=== PATIENT | female | born 1980 | race Caucasian/White ===

== ENCOUNTER 2017-11-05 14:01 | Emergency (ER) | payer MEDICAID, OTHER ==
[2017-11-05 14:01] VITALS: BMI 36.3
[2017-11-05 14:45] VITALS: TEMP 98.4; O2SAT 99
--- NOTE | 2017-11-05 15:18 | C.PDOC ---
History Of Present Illness 36 yo female w/PMHx of SLE ( not on medication), chronic lower back pain, come in for evaluation of tender " lump" noted over lower back today AM. Pt also reports, worsening of chronic lower back pain for past 2 weeks. Patient admits, similar lower back pain in past, localized, non-radiating and worse with movement. Otherwise, pt denies known recent trauma or injury, fever, chills, CP , SOB, dyspnea, diaphoresis, palpitation, abd. pain, N/V, UTI sx, saddle anesthesia, incontinence, denies weakness, sensory or vascular deficits to B/.L lEs. Ambulate to ED for evaluation, not in any apparent distress. Time Seen by Provider: 11/05/17 14:59 Chief Complaint (Nursing): Back Pain History Per: Patient Onset/Duration Of Symptoms: Gradual Past Medical History Reviewed: Historical Data, Nursing Documentation, Vital Signs Vital Signs: Last Vital Signs Temp 98.4 F 11/05/17 14:42 Pulse 70 11/05/17 15:58 Resp 16 11/05/17 15:58 BP 104/72 11/05/17 15:58 Pulse Ox 99 11/05/17 15:43 - Medical History PMH: Asthma, Cardia Arrhythmia (tachycardia as per patient), Hyperlipidemia, Hypothyroidism Surgical History: No Surg Hx Family History: States: Unknown Family Hx - Social History Hx Tobacco Use: No Hx Alcohol Use: Yes Hx Substance Use: No - Immunization History Hx Tetanus Toxoid Vaccination: Yes (2013) Hx Influenza Vaccination: No Hx Pneumococcal Vaccination: Yes Review Of Systems Except As Marked, All Systems Reviewed And Found Negative. Constitutional: Negative for: Fever, Chills ENT: Negative for: Throat Pain Cardiovascular: Negative for: Chest Pain Respiratory: Negative for: Cough, Shortness of Breath, Hemoptysis Gastrointestinal: Negative for: Nausea, Vomiting, Abdominal Pain, Diarrhea Genitourinary: Negative for: Dysuria, Frequency, Incontinence Musculoskeletal: Positive for: Back Pain Skin: Negative for: Lesions Neurological: Negative for: Weakness, Numbness Physical Exam - Physical Exam Appears: Well, Non-toxic, No Acute Distress Skin: Normal Color, Warm, Other (small tender mass 0.5 cm noted over coccyx area , deep. No skin changes, no erythema, no flactulance.) Head: Normacephalic Eye(s): bilateral: PERRL Throat: No Erythema, No Exudate, No Drooling Neck: Supple Gastrointestinal/Abdominal: Soft, No Tenderness, No Distention, No Guarding Back: No CVA Tenderness, No Vertebral Tenderness, Paraspinal Tenderness (mild B/ L lumbar. No midline tenderness, no skin changes.) Extremity: Normal ROM, No Pedal Edema, No Deformity Neurological/Psych: Oriented x3, Normal Speech, Normal Motor, Normal Sensation, Normal Reflexes ED Course And Treatment O2 Sat by Pulse Oximetry: 99 Pulse Ox Interpretation: Normal Progress Note: On re-evaluation, pt is afebrile, hemodynamicaly stable. Non- toxic. Ambulatory in ED with stable gait. ENT: no acute findings. uvula midline , no edema. neck: Supple, (-) meningeal sign. CVS: (+)S1S2, reg. Abd: benign. Neuorlogicaly intact. Skin: exam c/w early pilonidal cyst, no cellulitis, no flactulance. UA results review - normal study. Pt advised. ref. to F/u with PMD, SUrgery in 2-3 days for re-eavl. return to ED if any worsening or new changes. Disposition Counseled Patient/Family Regarding: Diagnosis, Need For Followup, Rx Given - Disposition Referrals: Jayant Mcmanus MD [Medical Doctor] - [facility] [Outside] Sumi Pickard MD [Staff Provider] - Disposition: HOME/ ROUTINE Disposition Time: 15:18 Condition: STABLE Additional Instructions: LIGHT DUTY TO LOWER BACK, AVOID HEAVY LIFTING, BENDING, ETC TAKE PAIN MEDICATION PRESCRIBED WARM SALTY WATER SITZ BATHS DAILY TAKE ANTIBIOTIC PRESCRIBED FOLLOW UP WITH PMD, SURGERY IN 2-3 DAYS FOR RE-EVALUATION. RETURN TO ED IF ANY WORSENING OR NEW CHANGES. Prescriptions: Doxycycline Monohydrate [Mondoxyne Nl] 100 mg PO BID #14 capsule Methocarbamol [Robaxin] 500 mg PO TID #14 tab traMADol [Ultram] 50 mg PO TID #7 tab Instructions: Chronic Back Pain (ED), Cyst (ED) Forms: [employer] (Divehi) - Clinical Impression Clinical Impression: Low back pain, Pilonidal cyst
[2017-11-05 15:59] VITALS: BP 104/72; PULSE 70; RESP 16
[2017-11-05 18:02] LABS: RBC URINE 3 /hpf (0-3); URINE BACTERIA OCC (<OCC); URINE BILIRUBIN NEGATIVE (NEGATIVE); URINE BLOOD 1+ (NEGATIVE); URINE CALCIUM OXALATE CRYSTALS OCC /hpf (<OCC); URINE COLOR Yellow (YELLOW); URINE GLUCOSE (UA) NORMAL (Normal); URINE KETONE NEGATIVE (NEGATIVE); URINE LEUKOCYTE ESTERASE NEG Leu/uL (Negative); URINE PROTEIN NEGATIVE (NEGATIVE); URINE UROBILINOGEN NORMAL mg/dL (0.2-1.0); WBC URINE 5 /hpf (0-5)
== END 2017-11-05 15:58 | disposition home or self-care (01) ==
LOC: C.ER 14:01
DX: L05.91 Pilonidal cyst without abscess (principal); M54.5 Low back pain

== ENCOUNTER 2018-01-31 23:40 | Emergency (ER) | payer MEDICAID ==
[2018-01-31 23:43] VITALS: BMI 36.3
[2018-02-01 00:07] VITALS: TEMP 98
--- NOTE | 2018-02-01 00:45 | C.PDOC ---
History Of Present Illness Patient with past medical history of HLD and hypothyroidism, presents to the ED complaining of left hematoma on a/c s/p having blood work done since 5 days ago. Patient denies any other complaints. Time Seen by Provider: 02/01/18 00:26 Chief Complaint (Nursing): Abnormal Skin Integrity History Per: Patient History/Exam Limitations: no limitations Onset/Duration Of Symptoms: Days Current Symptoms Are (Timing): Still Present Location Of Injury: Left: Arm Severity: Mild Pain Scale Rating Of: 2 Recent travel outside of the [place]: No Additional History Per: Family Past Medical History Reviewed: Historical Data, Nursing Documentation, Vital Signs Vital Signs: Last Vital Signs Temp 98.0 F 02/01/18 00:02 Pulse 107 H 02/01/18 00:02 Resp 18 02/01/18 00:02 BP 137/91 H 02/01/18 00:02 Pulse Ox - Medical History PMH: Asthma, Cardia Arrhythmia (tachycardia as per patient), Hyperlipidemia, Hypothyroidism Denies: Chronic Kidney Disease Family History: States: Unknown Family Hx - Social History Hx Tobacco Use: No Hx Alcohol Use: No Hx Substance Use: No - Immunization History Hx Tetanus Toxoid Vaccination: Yes (2013) Hx Influenza Vaccination: Yes Hx Pneumococcal Vaccination: Yes Review Of Systems Constitutional: Negative for: Fever, Chills Skin: Positive for: Other (hematoma on left arm) Psych: Negative for: Anxiety Physical Exam - Physical Exam Appears: Non-toxic, No Acute Distress Skin: Warm, Dry Cardiovascular: Rhythm Regular, No Murmur Extremity: Normal ROM (all fingers), Tenderness (3x4 hematoma with mild tenderness) Extremity: Left: Other (NROM wrist), Bilateral: Normal ROM (all fingers) Pulses: Left Brachial: Normal, Left Radial: Normal Neurological/Psych: Oriented x3, Normal Speech, Normal Motor Gait: Steady ED Course And Treatment O2 Sat by Pulse Oximetry: 98 Pulse Ox Interpretation: Normal Disposition Counseled Patient/Family Regarding: Studies Performed, Diagnosis, Need For Followup - Disposition Referrals: Colin Cristobal PA [Advanced Practice Nurse] - Disposition: HOME/ ROUTINE Disposition Time: 00:44 Condition: FAIR Additional Instructions: Please continue to monitor for swelling, redness and increased pain. Do return if these occur Instructions: Contusion (DC) Forms: [employer] (Croatian) - Clinical Impression Clinical Impression: Hematoma - Scribe Statement Scribe Attestation: Cristy English MD Scribe Attestation: All medical record entries made by the Scribe were at my direction and personally dictated by me. I have reviewed the chart and agree that the record accurately reflects my personal performance of the history, physical exam, medical decision making, and the department course for this patient. I have also personally directed, reviewed, and agree with the discharge instructions and disposition.
[2018-02-01 00:56] VITALS: BP 130/80; PULSE 70; RESP 14; O2SAT 99
== END 2018-02-01 00:55 | disposition home or self-care (01) ==
LOC: C.ER 23:40
DX: S40.022A Contusion of left upper arm, initial encounter (principal); Y84.8 Other medical procedures as the cause of abnormal reaction of the patient, or of later complication, without mention of misadventure at the time of the procedure; Y92.89 Other specified places as the place of occurrence of the external cause

== ENCOUNTER 2018-03-10 10:04 | Emergency (ER) | payer OTHER ==
[2018-03-10 10:08] VITALS: BMI 33.3
[2018-03-10 10:13] VITALS: RESP 18
[2018-03-10] MEDS ORDERED: Tramadol 25 mg PO STA (10:41)
[2018-03-10] MEDS ORDERED: Tramadol 25 mg ONE (10:57)
[2018-03-10 11:20] VITALS: BP 122/84; PULSE 94; TEMP 98.4; O2SAT 100
--- NOTE | 2018-03-10 12:11 | C.PDOC ---
History Of Present Illness 37 y/o female with history of RA presents to ED with complaints of back pain secondary to rheumatoid arthritis. Patient states she is due for Metrotrexate injection but doctor is on vacation and was scheduled for injection in 2 days. Patient denies trauma or any other complaints at this time. Chief Complaint (Nursing): Back Pain History Per: Patient History/Exam Limitations: no limitations Onset/Duration Of Symptoms: Days Current Symptoms Are (Timing): Still Present Quality Of Discomfort: "Pain" Past Medical History Reviewed: Historical Data, Nursing Documentation, Vital Signs Vital Signs: Last Vital Signs Temp 98.4 F 03/10/18 11:18 Pulse 94 H 03/10/18 11:18 Resp 18 03/10/18 11:18 BP 122/84 03/10/18 11:18 Pulse Ox 100 03/10/18 12:14 - Medical History PMH: Asthma, Cardia Arrhythmia (tachycardia as per patient), Hyperlipidemia, Hypothyroidism Surgical History: No Surg Hx Family History: States: No Known Family Hx - Social History Hx Tobacco Use: No Hx Alcohol Use: No Hx Substance Use: No - Immunization History Hx Tetanus Toxoid Vaccination: Yes (2013) Hx Influenza Vaccination: Yes Hx Pneumococcal Vaccination: Yes Review Of Systems Constitutional: Negative for: Fever, Chills Gastrointestinal: Negative for: Nausea, Vomiting Genitourinary: Negative for: Dysuria, Hematuria Musculoskeletal: Positive for: Back Pain. Negative for: Neck Pain Skin: Negative for: Rash Physical Exam - Physical Exam Appears: Non-toxic, No Acute Distress Skin: Warm, Dry, No Rash Head: Atraumatic, Normacephalic Oral Mucosa: Moist Neck: Normal ROM, Supple Cardiovascular: Rhythm Regular Respiratory: Normal Breath Sounds, No Rales, No Rhonchi, No Wheezing Gastrointestinal/Abdominal: Soft, No Tenderness, No Guarding, No Rebound Back: No CVA Tenderness, No Paraspinal Tenderness Extremity: Normal ROM, Capillary Refill (<2 seconds) Neurological/Psych: Oriented x3, Normal Motor, Normal Sensation ED Course And Treatment O2 Sat by Pulse Oximetry: 100 (RA) Pulse Ox Interpretation: Normal Disposition - [facility] - Disposition: HOME/ ROUTINE Disposition Time: 10:30 Condition: GOOD Additional Instructions: Thank you for letting us take care of you today. The emergency medical care you received today was directed at your acute symptoms. If you were prescribed any medication, please fill it and take as directed. It may take several days for your symptoms to resolve. Return to the Emergency Department if your symptoms worsen, do not improve, or if you have any other problems. Please contact your doctor or call one of the physicians/clinics you have been referred to that are listed on the Patient Visit Information form that is included in your discharge packet. Bring any paperwork you were given at discharge with you along with any medications you are taking to your follow up visit. Our treatment cannot replace ongoing medical care by a primary care provider (PCP) outside of the emergency department. Thank you for allowing the [facility] team to be part of your care today. Follow up with your primary care doctor in 2-3 days for re-evaluation and further management. Prescriptions: traMADol [Ultram] 25 mg PO Q8 PRN #15 tab PRN Reason: Pain, Severe (8-10) Instructions: Rheumatoid Arthritis (DC) Forms: [employer] (Macanese) - Clinical Impression Clinical Impression: Rheumatoid arthritis - Scribe Statement The provider has reviewed the documentation as recorded by the Noamibhyacinth Escamilla All medical record entries made by the Scribe were at my direction and personally dictated by me. I have reviewed the chart and agree that the record accurately reflects my personal performance of the history, physical exam, medical decision making, and the department course for this patient. I have also personally directed, reviewed, and agree with the discharge instructions and disposition.
== END 2018-03-10 11:20 | disposition home or self-care (01) ==
LOC: C.ER 10:04
DX: M06.9 Rheumatoid arthritis, unspecified (principal)

== ENCOUNTER 2019-04-30 10:25 | Emergency (ER) | payer OTHER ==
[2019-04-30 10:25] VITALS: BMI 33.3
[2019-04-30 10:34] VITALS: BP 108/76; PULSE 102; RESP 18; TEMP 98.6; O2SAT 97
--- NOTE | 2019-04-30 10:53 | C.PDOC ---
History Of Present Illness 38 year old female with PMHx of SLE and RA presents to the ED complaining of right hip pain since March 30. Reports she stopped taking her SLE and RA medications and started taking natural remedies and exercising. States the natural remedies and exercises are not working and she is in a lot of pain. Denies any trauma, bowel or bladder incontinence, fever or chills. Time Seen by Provider: 04/30/19 10:46 Chief Complaint (Nursing): Medical Clearance Past Medical History Reviewed: Historical Data, Nursing Documentation, Vital Signs Vital Signs: Last Vital Signs Temp 98.6 F 04/30/19 10:30 Pulse 102 H 04/30/19 10:30 Resp 18 04/30/19 10:30 BP 108/76 04/30/19 10:30 Pulse Ox 97 04/30/19 10:30 Primary Care Provider: FAMILY PROVIDER,NO - Medical History PMH: Arthritis, Asthma, Cardia Arrhythmia (tachycardia as per patient), Hyperlipidemia, Hypothyroidism Denies: Chronic Kidney Disease Other Surgeries: Hx of surgeries Family History: States: No Known Family Hx - Social History Hx Tobacco Use: No Hx Alcohol Use: No Hx Substance Use: No - Immunization History Hx Tetanus Toxoid Vaccination: Yes (2013) Hx Influenza Vaccination: Yes Hx Pneumococcal Vaccination: Yes Review Of Systems Except As Marked, All Systems Reviewed And Found Negative. Constitutional: Negative for: Fever, Chills Musculoskeletal: Positive for: Other (right hip tenderness ) Neurological: Negative for: Weakness, Numbness Physical Exam - Physical Exam Appears: Non-toxic, Other (uncomfortable ) Skin: Warm, Dry Head: Atraumatic, Normacephalic Eye(s): bilateral: PERRL, EOMI Oral Mucosa: Moist Neck: Supple Chest: Symmetrical Cardiovascular: Rhythm Regular, No Murmur Respiratory: No Rales, No Rhonchi, No Wheezing, Other (Good air movement, Lungs CTA bilaterally) Extremity: Normal ROM, Tenderness (right anterior hip tenderness), Capillary Refill <2 Sec Extremity: Bilateral: Atraumatic, Normal Color And Temperature, Normal ROM Pulses: Left Dorsalis Pedis: Normal, Right Dorsalis Pedis: Normal Neurological/Psych: Oriented x3, Normal Speech, Normal Motor, Normal Sensation, Other (GCS 15, CN 2-12 intact, 5/5 muscle strength) Gait: Other (limping) ED Course And Treatment O2 Sat by Pulse Oximetry: 97 (RA) Pulse Ox Interpretation: Normal Medical Decision Making Medical Decision Making: Plan - Toradol 60mg Im - POC Urine Patient reports she has Tramadol at home which she will start taking again. Notes she has an appointment on May 07 for Methotrexate injection which she ge ts every 2 weeks. Patient instructed to follow up with her PMD. Advised to return to the ED if symptoms persist or worsen. Disposition Counseled Patient/Family Regarding: Diagnosis, Need For Followup - Disposition Disposition: HOME/ ROUTINE Disposition Time: 11:25 Condition: IMPROVED Additional Instructions: BUBBA STOVALL, thank you for letting us take care of you today. Your provider was Sarah Pennington MD and you were treated for RT SIDE HIP PAIN. The emergency medical care you received today was directed at your acute symptoms. Take your pain medication you have at home. It may take several days for your symptoms to resolve. Return to the Emergency Department if your symptoms worsen, do not improve, or if you have any other problems. Please contact your doctor in 2 days for a follow up appointment. Bring any paperwork you were given at discharge with you along with any medications you are taking to your follow up visit. Our treatment cannot replace ongoing medical care by a primary care provider outside of the emergency department. Thank you for allowing the [facility] team to be part of your care today. Instructions: Rheumatoid Arthritis (DC) Forms: [employer] (Turkmen), General Discharge Instructions - Clinical Impression Clinical Impression: Rheumatoid arthritis flare - Scribe Statement The provider has reviewed the documentation as recorded by the Scribhyacinth Blevins All medical record entries made by the Noamibhyacinth were at my direction and personally dictated by me. I have reviewed the chart and agree that the record accurately reflects my personal performance of the history, physical exam, medical decision making, and the department course for this patient. I have also personally directed, reviewed, and agree with the discharge instructions and disposition.
== END 2019-04-30 11:30 | disposition home or self-care (01) ==
LOC: C.ER 10:25
DX: M06.9 Rheumatoid arthritis, unspecified (principal)
CPT/HCPCS: 81025; 96372; 99282; J1885